=== PATIENT | male | born 1990 | race Caucasian/White ===

== ENCOUNTER 2017-12-17 03:53 | Observation (INO) | payer SELFPAY ==
--- NOTE | 2017-12-17 04:00 | EDM.PDOC ---
ED HPI GENERAL MEDICAL PROBLEM - General Stated Complaint: OVERDOSE Time Seen by Provider: 12/17/17 03:59 Source of Information: Reports: Patient - History of Present Illness INITIAL COMMENTS - FREE TEXT/NARRATIVE: HISTORY AND PHYSICAL: History of present illness: [Patient presents via EMS He has altered mental status presumed to have overdosed on Ambien, he takes 5 mg of Ambien daily for 7 years he filled his prescription on the 8 tabs are used from the bottle, unable to obtain history from patient [place] Coma Scale is 9-10, presumed ingestion within the last hour, EMS did provide 2 mg of Narcan with no effect, glucose was 117 on EMS check After several hours in the ER patient did sit up and we did have a conversation however he went back to sleep shortly after he did deny suicidal ideation he states he was drinking too much alcohol and took 10 mg of Ambien ] Review of systems: As per history of present illness and below otherwise all systems reviewed and negative. Past medical history: As per history of present illness and as reviewed below otherwise noncontributory. Surgical history: As per history of present illness and as reviewed below otherwise noncontributory. Social history: No reported history of drug or alcohol abuse. Family history: As per history of present illness and as reviewed below otherwise noncontributory. Physical exam: HEENT: Atraumatic, normocephalic, pupils reactive, negative for conjunctival pallor or scleral icterus, mucous membranes moist, throat clear, neck supple, nontender, trachea midline. Contusion right eye Lungs: Clear to auscultation, breath sounds equal bilaterally, chest nontender. Heart: S1S2, regular, negative for clicks, rubs, or JVD. Abdomen: Soft, nondistended, nontender. Negative for masses or hepatosplenomegaly. Negative for costovertebral tenderness. Pelvis: Stable nontender. Genitourinary: Deferred. Rectal: Deferred. Extremities: Atraumatic, negative for cords or calf pain. Neurovascular unremarkable. Neuro: Awake, alert, oriented. Cranial nerves II through XII unremarkable. Cerebellum unremarkable. Motor and sensory unremarkable throughout. Exam nonfocal. 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 - Related Data Allergies Allergy/AdvReac Type Severity Reaction Status Date / Time Unable to Assess Allergy Unverified 12/17/17 05:35 Home Meds: Home Meds . [Unable to Verify Home Med List] 12/17/17 [History] ED ROS GENERAL - Review of Systems Review Of Systems: See Below ED EXAM, GENERAL - Physical Exam Exam: See Below Course - Vital Signs Last Recorded V/S: Last Vital Signs Temp 97.5 F 12/17/17 03:53 Pulse 110 H 12/17/17 07:00 Resp 20 12/17/17 07:00 BP 144/89 H 12/17/17 07:00 Pulse Ox 97 12/17/17 07:00 - Orders/Labs/Meds Orders: Active Orders 24 hr Category Date Time Status Admission Status [Patient Status] [ADT] Stat ADT 12/17/17 07:10 Active EKG Documentation Completion [RC] STAT Care 12/17/17 03:55 Active Insert Truong Catheter [Insert Urinary Catheter] [OM.PC] Care 12/17/17 04:15 Ordered Q24H Urinary Catheter Assessment [RC] ASDIRECTED Care 12/17/17 04:12 Active Chest 1V Frontal [CR] Stat Exams 12/17/17 03:55 Taken Head wo Cont [CT] Stat Exams 12/17/17 03:55 Taken Max Facial Sinus wo Cont [CT] Stat Exams 12/17/17 04:00 Taken ACETAMINOPHEN [CHEM] Stat Lab 12/17/17 03:58 Results COMPREHENSIVE METABOLIC PN,CMP [CHEM] Stat Lab 12/17/17 03:58 Results DRUG SCREEN, URINE [URCHEM] Stat Lab 12/17/17 04:00 Ordered ETHANOL BLOOD MEDICAL [CHEM] Stat Lab 12/17/17 03:58 Results SALICYLATE [CHEM] Stat Lab 12/17/17 03:58 Results TROPONIN I [CHEM] Stat Lab 12/17/17 03:58 Results TSH [CHEM] Stat Lab 12/17/17 03:58 Results UA W/MICROSCOPIC [URIN] Stat Lab 12/17/17 04:00 Ordered Sodium Chloride 0.9% [Normal Saline] 1,000 ml Med 12/17/17 04:15 Active IV STAT Medication Orders Sodium Chloride (Normal Saline) 1,000 mls @ 125 mls/hr IV STAT FARIBA Last Admin: 12/17/17 04:13 Dose: 125 mls/hr Labs: Laboratory Tests 12/17/17 12/17/17 12/17/17 Range/Units 03:58 03:58 04:00 WBC 7.61 (4.0-11.0) K/uL RBC 4.67 (4.50-5.90) M/uL Hgb 15.2 (13.0-17.0) g/dL Hct 43.0 (38.0-50.0) % MCV 92.1 (80.0-98.0) fL MCH 32.5 H (27.0-32.0) pg MCHC 35.3 (31.0-37.0) g/dL RDW Std Deviation 42.2 (28.0-62.0) fl RDW Coeff of Jose L 13 (11.0-15.0) % Plt Count 268 (150-400) K/uL MPV 9.50 (7.40-12.00) fL Neut % (Auto) 51.1 (48.0-80.0) % Lymph % (Auto) 40.9 H (16.0-40.0) % [place] % (Auto) 7.4 (0.0-15.0) % Eos % (Auto) 0.5 (0.0-7.0) % Baso % (Auto) 0.1 (0.0-1.5) % Neut # (Auto) 3.9 (1.4-5.7) K/uL Lymph # (Auto) 3.1 H (0.6-2.4) K/uL [place] # (Auto) 0.6 (0.0-0.8) K/uL Eos # (Auto) 0.0 (0.0-0.7) K/uL Baso # (Auto) 0.0 (0.0-0.1) K/uL Nucleated RBC % 0.0 /100WBC Nucleated RBCs # 0 K/uL Sodium 143 (136-148) mmol/L Potassium 3.5 (3.5-5.1) mmol/L Chloride 107 (98-107) mmol/L Urine Color YELLOW Urine Appearance CLEAR Urine pH 6.0 (5.0-8.0) Ur Specific [place] 1.025 (1.001-1.035) Urine Protein NEGATIVE (NEGATIVE) mg/dL Urine Glucose (UA) NEGATIVE (NEGATIVE) mg/dL Urine Ketones NEGATIVE (NEGATIVE) mg/dL Urine Occult Blood NEGATIVE (NEGATIVE) Urine Nitrite NEGATIVE (NEGATIVE) Urine Bilirubin NEGATIVE (NEGATIVE) Urine Urobilinogen 0.2 (<2.0) EU/dL Ur Leukocyte Esterase NEGATIVE (NEGATIVE) Urine RBC NONE SEEN (0-2/HPF) Urine WBC 0-3 (0-5/HPF) Ur Epithelial Cells RARE (NONE-FEW) Urine Bacteria RARE (NEGATIVE) Urine Mucus LIGHT (NONE-MOD) Salicylates 1.1 (0-20) mg/dL Urine Opiates Screen (NEGATIVE) Ur Oxycodone Screen (NEGATIVE) Urine Methadone Screen (NEGATIVE) Acetaminophen 0.0 ug/mL Ur Barbiturates Screen (NEGATIVE) Ur Phencyclidine Scrn (NEGATIVE) Ur Amphetamine Screen (NEGATIVE) U Methamphetamines Scrn (NEGATIVE) U Benzodiazepines Scrn (NEGATIVE) U Cocaine Metab Screen (NEGATIVE) U Marijuana (THC) Screen (NEGATIVE) 12/17/17 Range/Units 04:00 WBC (4.0-11.0) K/uL RBC (4.50-5.90) M/uL Hgb (13.0-17.0) g/dL Hct (38.0-50.0) % MCV (80.0-98.0) fL MCH (27.0-32.0) pg MCHC (31.0-37.0) g/dL RDW Std Deviation (28.0-62.0) fl RDW Coeff of Jose L (11.0-15.0) % Plt Count (150-400) K/uL MPV (7.40-12.00) fL Neut % (Auto) (48.0-80.0) % Lymph % (Auto) (16.0-40.0) % [place] % (Auto) (0.0-15.0) % Eos % (Auto) (0.0-7.0) % Baso % (Auto) (0.0-1.5) % Neut # (Auto) (1.4-5.7) K/uL Lymph # (Auto) (0.6-2.4) K/uL [place] # (Auto) (0.0-0.8) K/uL Eos # (Auto) (0.0-0.7) K/uL Baso # (Auto) (0.0-0.1) K/uL Nucleated RBC % /100WBC Nucleated RBCs # K/uL Sodium (136-148) mmol/L Potassium (3.5-5.1) mmol/L Chloride (98-107) mmol/L Urine Color Urine Appearance Urine pH (5.0-8.0) Ur Specific [place] (1.001-1.035) Urine Protein (NEGATIVE) mg/dL Urine Glucose (UA) (NEGATIVE) mg/dL Urine Ketones (NEGATIVE) mg/dL Urine Occult Blood (NEGATIVE) Urine Nitrite (NEGATIVE) Urine Bilirubin (NEGATIVE) Urine Urobilinogen (<2.0) EU/dL Ur Leukocyte Esterase (NEGATIVE) Urine RBC (0-2/HPF) Urine WBC (0-5/HPF) Ur Epithelial Cells (NONE-FEW) Urine Bacteria (NEGATIVE) Urine Mucus (NONE-MOD) Salicylates (0-20) mg/dL Urine Opiates Screen NEGATIVE (NEGATIVE) Ur Oxycodone Screen NEGATIVE (NEGATIVE) Urine Methadone Screen NEGATIVE (NEGATIVE) Acetaminophen ug/mL Ur Barbiturates Screen NEGATIVE (NEGATIVE) Ur Phencyclidine Scrn NEGATIVE (NEGATIVE) Ur Amphetamine Screen NEGATIVE (NEGATIVE) U Methamphetamines Scrn NEGATIVE (NEGATIVE) U Benzodiazepines Scrn NEGATIVE (NEGATIVE) U Cocaine Metab Screen NEGATIVE (NEGATIVE) U Marijuana (THC) Screen NEGATIVE (NEGATIVE) Meds: Medications Generic Name Dose Route Start Last Admin Trade Name Freq PRN Reason Stop Dose Admin Sodium Chloride 1,000 mls @ 125 mls/hr 12/17/17 04:15 12/17/17 04:13 Normal Saline IV 125 mls/hr STAT FARIBA Administration Departure - Departure Time of Disposition: 07:17 Disposition: Refer to Observation Condition: Fair Clinical Impression: Drug abuse - Discharge Information - My Orders Last 24 Hours: My Active Orders 12/17/17 03:55 EKG Documentation Completion [RC] STAT Chest 1V Frontal [CR] Stat Head wo Cont [CT] Stat 12/17/17 03:58 ACETAMINOPHEN [CHEM] Stat COMPREHENSIVE METABOLIC PN,CMP [CHEM] Stat ETHANOL BLOOD MEDICAL [CHEM] Stat SALICYLATE [CHEM] Stat TROPONIN I [CHEM] Stat TSH [CHEM] Stat 12/17/17 04:00 Max Facial Sinus wo Cont [CT] Stat DRUG SCREEN, URINE [URCHEM] Stat UA W/MICROSCOPIC [URIN] Stat 12/17/17 04:12 Urinary Catheter Assessment [RC] ASDIRECTED 12/17/17 04:15 Insert Truong Catheter [Insert Urinary Catheter] [OM.PC] Q24H Sodium Chloride 0.9% [Normal Saline] 1,000 ml IV STAT 12/17/17 07:10 Admission Status [Patient Status] [ADT] Stat - Assessment/Plan Last 24 Hours: My Active Orders 12/17/17 03:55 EKG Documentation Completion [RC] STAT Chest 1V Frontal [CR] Stat Head wo Cont [CT] Stat 12/17/17 03:58 ACETAMINOPHEN [CHEM] Stat COMPREHENSIVE METABOLIC PN,CMP [CHEM] Stat ETHANOL BLOOD MEDICAL [CHEM] Stat SALICYLATE [CHEM] Stat TROPONIN I [CHEM] Stat TSH [CHEM] Stat 12/17/17 04:00 Max Facial Sinus wo Cont [CT] Stat DRUG SCREEN, URINE [URCHEM] Stat UA W/MICROSCOPIC [URIN] Stat 12/17/17 04:12 Urinary Catheter Assessment [RC] ASDIRECTED 12/17/17 04:15 Insert Truong Catheter [Insert Urinary Catheter] [OM.PC] Q24H Sodium Chloride 0.9% [Normal Saline] 1,000 ml IV STAT 12/17/17 07:10 Admission Status [Patient Status] [ADT] Stat
[2017-12-17] MEDS ORDERED: Sodium Chloride 0.9% 1,000 ML IV SCH (04:15)
[2017-12-17 04:37] LABS: CHLORIDE,CL 107 mmol/L (98-107); SODIUM,NA 143 mmol/L (136-148)
[2017-12-17] MEDS ORDERED: Sodium Chloride 0.9% 10 ML Syringe FLUSH PRN (09:11)
[2017-12-17] MEDS ORDERED: Morphine 2 MG/ML Syringe IVPUSH PRN (09:11)
[2017-12-17] MEDS ORDERED: Acetaminophen 325 MG Tab PO PRN (09:11)
[2017-12-17] MEDS ORDERED: Sodium Chloride 0.9% 2.5 ML Syringe FLUSH PRN (09:11)
[2017-12-17] MEDS ORDERED: Lactated Ringers 1,000 ML IV SCH (09:15)
[2017-12-17] MEDS ORDERED: MVI, Adult with Vitamin K 10 ML, Thiamine 100 MG, Folic Acid 1 MG in Sodium Chloride 0.... IV ONE ×4 (09:16)
--- NOTE | 2017-12-17 10:18 | CT ---
EXAM DATE: 12/17/17 PATIENT'S AGE: 27 Patient: JENNIFER GOMEZ Facility: [place], [place] Site . Site : 1990 Study: CT Facial [id number]/16/2018 5:05:39 AM Ordering Physician: Doctor Arndt Final Report: INDICATION: Unresponsive. Injury. TECHNIQUE: CT maxillofacial without contrast. COMPARISON: None available FINDINGS: There is no evidence of an acute facial bone fracture. There is no significant facial soft tissue swelling. The orbital contents appear grossly symmetrical. The paranasal sinuses are well aerated without air-fluid levels. IMPRESSION: No evidence of an acute facial bone fracture. Dictated by Dutch Jenkins MD @ 12/17/2017 5:31:53 AM Please note that all CT scans at this facility use dose modulation, iterative reconstruction, and/or weight-based dosing when appropriate to reduce radiation dose to as low as reasonably achievable. Dictated by: Dutch Jenkins MD @ 12/17/2017 05:32:01 (Electronic Signature) Report Signed by Proxy. [facility]OSPITALEmilia
--- NOTE | 2017-12-17 10:18 | CR ---
EXAM DATE: 12/17/17 PATIENT'S AGE: 27 Patient: JENNIFER GOMEZ Facility: [place], [place] Site . Site : 1990 Study: XRay Chest [id number]/16/2018 5:04:40 AM Ordering Physician: Doctor Arndt Final Report: Indication: Overdose Technique: Chest 1 view Comparison: None Findings/Impression: Cardiovascular and mediastinum: Mild cardiomegaly which could be related to the portable technique. Lungs and pleural space: An expiratory study. No gross consolidation or pleural effusions. Bones and soft tissues: No significant findings. Dictated by Dutch Jenkins MD @ 12/17/2017 5:22:41 AM Dictated by: Dutch Jenkins MD @ 12/17/2017 05:22:44 (Electronic Signature) Report Signed by Proxy. MTDEmilia
--- NOTE | 2017-12-17 10:19 | CT ---
EXAM DATE: 12/17/17 PATIENT'S AGE: 27 Patient: JENNIFER GOMEZ Facility: [place], [place] Site . Site : 1990 Study: CT Head [id number]/16/2018 5:10:33 AM Ordering Physician: Doctor Arndt Final Report: INDICATION: Unresponsive TECHNIQUE: CT head without contrast. COMPARISON: None available FINDINGS: The ventricles and sulci are within normal limits for the patient`s age. There is no mass effect or midline shift. There is no loss of johnson-white differentiation. There is no evidence of an acute intracranial hemorrhage. No acute calvarial fracture is seen. The visualized paranasal sinuses and mastoid air cells are clear. Visualized orbits are within normal limits. IMPRESSION: No evidence of an acute intracranial hemorrhage, mass effect or loss of johnson- white differentiation. Dictated by Dutch Jenkins MD @ 12/17/2017 5:26:36 AM Please note that all CT scans at this facility use dose modulation, iterative reconstruction, and/or weight-based dosing when appropriate to reduce radiation dose to as low as reasonably achievable. Dictated by: Dutch Jenkins MD @ 12/17/2017 05:26:42 (Electronic Signature) Report Signed by Proxy. [facility] NETWORKEmilia
--- NOTE | 2017-12-17 22:23 | PCM.HP ---
H&P History of Present Illness - General Date of Service: 12/17/17 Admit Problem/Dx: Admission Diagnosis/Problem Admission Diagnosis/Problem Drug overdose Source of Information: Patient History Limitations: Reports: No Limitations - History of Present Illness Initial Comments - Free Text/Narative: Patient 27 y old man presented to Er because he became unresponsive when he went to bathroom and his roommate called EMS.Patient says he had a bottle of Ambien 30 tablets since 2013 and he takes one tablet of Ambien prn , 5 mg when he cant sleep.Last night while with his friend , he drank alcohol and later took few tablets of Ambien to go to sleep. Patient denies any suicidal ideation and he does not remember when he took and how many tablets he took as he was too drunk. After he took the Ambien he wanted to walk to bathroom but fell back on the bed. His friend tried to help him go to bathroom and he fell forward and hit his face , corner of the left eye on a table. Once he arrived to bathroom and sit on the toilet he became unresponsive and EMS was called. When patient came to Er he was responding only to sternal rub by opening his eye. The bottle Ambien was seen by me and there were a Onset of Symptoms: Reports: Today Location: Reports: Head - Related Data Allergies/Adverse Reactions: Allergies Allergy/AdvReac Type Severity Reaction Status Date / Time No Known Drug Allergies Allergy Other Verified 12/17/17 09:27 Home Medications: Home Meds . [Unable to Verify Home Med List] 12/17/17 [History] Social & Family History - Tobacco Use Smoking Status *Q: Current Some Day Smoker Years of Tobacco use: 10 Packs/Tins Daily: 0.5 - Caffeine Use Caffeine Use: Reports: Soda - Alcohol Use Date of Last Drink: 12/16/17 - Recreational Drug Use Recreational Drug Use: No H&P Review of Systems - Review of Systems: Review Of Systems: Unable To Obtain Exam - Exam Exam: See Below - Vital Signs Vital Signs: Last Vital Signs Temp 97.4 F 12/17/17 13:00 Pulse 110 H 12/17/17 07:00 Resp 16 12/17/17 16:00 BP 138/87 12/17/17 16:00 Pulse Ox 97 12/17/17 16:00 Weight: 253 lb 8.505 oz - Exam General: Obtunded HEENT: Conjunctiva Clear, Other (mild bruise in the corner of the left eye) Neck: Trachea Midline. No: Thyromegaly Lungs: Clear to Auscultation Cardiovascular: Regular Rate, Regular Rhythm, Normal S1, Normal S2 GI/Abdominal Exam: Normal Bowel Sounds, Soft, No Distention, No Mass (Male) Exam: Other (Truong on) Extremities: Normal Inspection - Patient Data Lab Results Last 24 hrs: Laboratory Results - last 24 hr 12/17/17 12/17/17 12/17/17 Range/Units 03:58 03:58 04:00 WBC 7.61 (4.0-11.0) K/uL RBC 4.67 (4.50-5.90) M/uL Hgb 15.2 (13.0-17.0) g/dL Hct 43.0 (38.0-50.0) % MCV 92.1 (80.0-98.0) fL MCH 32.5 H (27.0-32.0) pg MCHC 35.3 (31.0-37.0) g/dL RDW Std Deviation 42.2 (28.0-62.0) fl RDW Coeff of Jose L 13 (11.0-15.0) % Plt Count 268 (150-400) K/uL MPV 9.50 (7.40-12.00) fL Neut % (Auto) 51.1 (48.0-80.0) % Lymph % (Auto) 40.9 H (16.0-40.0) % [place] % (Auto) 7.4 (0.0-15.0) % Eos % (Auto) 0.5 (0.0-7.0) % Baso % (Auto) 0.1 (0.0-1.5) % Neut # (Auto) 3.9 (1.4-5.7) K/uL Lymph # (Auto) 3.1 H (0.6-2.4) K/uL [place] # (Auto) 0.6 (0.0-0.8) K/uL Eos # (Auto) 0.0 (0.0-0.7) K/uL Baso # (Auto) 0.0 (0.0-0.1) K/uL Nucleated RBC % 0.0 /100WBC Nucleated RBCs # 0 K/uL Sodium 143 (136-148) mmol/L Potassium 3.5 (3.5-5.1) mmol/L Chloride 107 (98-107) mmol/L Carbon Dioxide 21.2 (21.0-32.0) mmol/L BUN 9 (7.0-18.0) mg/dL Creatinine 1.2 (0.8-1.3) mg/dL Est Cr Clr Drug Dosing 94.63 mL/min Estimated GFR (MDRD) > 60.0 ml/min Glucose 102 (74-106) mg/dL Calcium 8.7 (8.5-10.1) mg/dL Total Bilirubin 0.2 (0.2-1.0) mg/dL AST 21 (15-37) IU/L ALT 56 (14-63) IU/L Alkaline Phosphatase 61 (46-116) U/L Troponin I < 0.050 (0.000-0.056) ng/mL Total Protein 7.3 (6.4-8.2) g/dL Albumin 4.0 (3.4-5.0) g/dL Globulin 3.3 (2.0-3.5) g/dL Albumin/Globulin Ratio 1.2 L (1.3-2.8) TSH 3rd Generation 2.20 (0.36-3.74) uIU/mL Urine Color YELLOW Urine Appearance CLEAR Urine pH 6.0 (5.0-8.0) Ur Specific [place] 1.025 (1.001-1.035) Urine Protein NEGATIVE (NEGATIVE) mg/dL Urine Glucose (UA) NEGATIVE (NEGATIVE) mg/dL Urine Ketones NEGATIVE (NEGATIVE) mg/dL Urine Occult Blood NEGATIVE (NEGATIVE) Urine Nitrite NEGATIVE (NEGATIVE) Urine Bilirubin NEGATIVE (NEGATIVE) Urine Urobilinogen 0.2 (<2.0) EU/dL Ur Leukocyte Esterase NEGATIVE (NEGATIVE) Urine RBC NONE SEEN (0-2/HPF) Urine WBC 0-3 (0-5/HPF) Ur Epithelial Cells RARE (NONE-FEW) Urine Bacteria RARE (NEGATIVE) Urine Mucus LIGHT (NONE-MOD) Salicylates 1.1 (0-20) mg/dL Urine Opiates Screen (NEGATIVE) Ur Oxycodone Screen (NEGATIVE) Urine Methadone Screen (NEGATIVE) Acetaminophen 0.0 ug/mL Ur Barbiturates Screen (NEGATIVE) Ur Phencyclidine Scrn (NEGATIVE) Ur Amphetamine Screen (NEGATIVE) U Methamphetamines Scrn (NEGATIVE) U Benzodiazepines Scrn (NEGATIVE) U Cocaine Metab Screen (NEGATIVE) U Marijuana (THC) Screen (NEGATIVE) Ethyl Alcohol 74 mg/dL 12/17/17 Range/Units 04:00 WBC (4.0-11.0) K/uL RBC (4.50-5.90) M/uL Hgb (13.0-17.0) g/dL Hct (38.0-50.0) % MCV (80.0-98.0) fL MCH (27.0-32.0) pg MCHC (31.0-37.0) g/dL RDW Std Deviation (28.0-62.0) fl RDW Coeff of Jose L (11.0-15.0) % Plt Count (150-400) K/uL MPV (7.40-12.00) fL Neut % (Auto) (48.0-80.0) % Lymph % (Auto) (16.0-40.0) % [place] % (Auto) (0.0-15.0) % Eos % (Auto) (0.0-7.0) % Baso % (Auto) (0.0-1.5) % Neut # (Auto) (1.4-5.7) K/uL Lymph # (Auto) (0.6-2.4) K/uL [place] # (Auto) (0.0-0.8) K/uL Eos # (Auto) (0.0-0.7) K/uL Baso # (Auto) (0.0-0.1) K/uL Nucleated RBC % /100WBC Nucleated RBCs # K/uL Sodium (136-148) mmol/L Potassium (3.5-5.1) mmol/L Chloride (98-107) mmol/L Carbon Dioxide (21.0-32.0) mmol/L BUN (7.0-18.0) mg/dL Creatinine (0.8-1.3) mg/dL Est Cr Clr Drug Dosing mL/min Estimated GFR (MDRD) ml/min Glucose (74-106) mg/dL Calcium (8.5-10.1) mg/dL Total Bilirubin (0.2-1.0) mg/dL AST (15-37) IU/L ALT (14-63) IU/L Alkaline Phosphatase (46-116) U/L Troponin I (0.000-0.056) ng/mL Total Protein (6.4-8.2) g/dL Albumin (3.4-5.0) g/dL Globulin (2.0-3.5) g/dL Albumin/Globulin Ratio (1.3-2.8) TSH 3rd Generation (0.36-3.74) uIU/mL Urine Color Urine Appearance Urine pH (5.0-8.0) Ur Specific [place] (1.001-1.035) Urine Protein (NEGATIVE) mg/dL Urine Glucose (UA) (NEGATIVE) mg/dL Urine Ketones (NEGATIVE) mg/dL Urine Occult Blood (NEGATIVE) Urine Nitrite (NEGATIVE) Urine Bilirubin (NEGATIVE) Urine Urobilinogen (<2.0) EU/dL Ur Leukocyte Esterase (NEGATIVE) Urine RBC (0-2/HPF) Urine WBC (0-5/HPF) Ur Epithelial Cells (NONE-FEW) Urine Bacteria (NEGATIVE) Urine Mucus (NONE-MOD) Salicylates (0-20) mg/dL Urine Opiates Screen NEGATIVE (NEGATIVE) Ur Oxycodone Screen NEGATIVE (NEGATIVE) Urine Methadone Screen NEGATIVE (NEGATIVE) Acetaminophen ug/mL Ur Barbiturates Screen NEGATIVE (NEGATIVE) Ur Phencyclidine Scrn NEGATIVE (NEGATIVE) Ur Amphetamine Screen NEGATIVE (NEGATIVE) U Methamphetamines Scrn NEGATIVE (NEGATIVE) U Benzodiazepines Scrn NEGATIVE (NEGATIVE) U Cocaine Metab Screen NEGATIVE (NEGATIVE) U Marijuana (THC) Screen NEGATIVE (NEGATIVE) Ethyl Alcohol mg/dL Result Diagrams: 12/17/17 03:58 12/17/17 03:58 - Problem List (1) Accidental drug overdose SNOMED Code(s): 14234863 ICD Code: T50.901A - POISONING BY UNSP DRUG/MEDS/BIOL SUBST, ACCIDENTAL, INIT Status: Acute (2) Alcohol intoxication SNOMED Code(s): 13602731 ICD Code: F10.929 - ALCOHOL USE, UNSPECIFIED WITH INTOXICATION, UNSPECIFIED Status: Acute Problem List Initiated/Reviewed/Updated: Yes Orders Last 24hrs: Active Orders 24 hr Category Date Time Status Admission Status [Patient Status] [ADT] Stat ADT 12/17/17 07:10 Active Patient Status [ADT] Routine ADT 12/17/17 09:11 Active Insert Truong Catheter [Insert Urinary Catheter] [OM.PC] Care 12/17/17 04:15 Ordered Q24H Oxygen Therapy [RC] PRN Care 12/17/17 09:11 Active Pulse Oximetry [RC] PRN Care 12/17/17 09:13 Active Ready for Discharge [RC] PER UNIT ROUTINE Care 12/17/17 15:59 Active Up ad Tatiana [RC] ASDIRECTED Care 12/17/17 09:11 Active Urinary Catheter Assessment [RC] ASDIRECTED Care 12/17/17 04:12 Active Vital Signs [RC] Q1H Care 12/17/17 09:11 Active DRUG SCREEN, URINE [URCHEM] Stat Lab 12/17/17 04:00 Ordered UA W/MICROSCOPIC [URIN] Stat Lab 12/17/17 04:00 Ordered Peripheral IV Insertion Adult [OM.PC] Routine Oth 12/17/17 09:11 Ordered Sequential Compression Device [OM.PC] Per Unit Routine Oth 12/17/17 09:14 Ordered Resuscitation Status Routine Resus Stat 12/17/17 09:[address] head negative Ct facial negative for fracture CXr negative a/p drug overdose with AMS alcohol intoxication plan admit patient to ICU observation Iv fluids will monitor in telemetry until patient wakes up Discharge summary Patient woke up . He was fully awake , his friend was in the room , he denied suicidal ideation , and provided full history. He was discharged home in a stable condition and advised to not take Ambien if he drinks alcohol .
== END 2017-12-17 16:22 | disposition home or self-care (01) ==
LOC: MW.ED 03:53 → MW.ICU 07:10
PROVIDERS: ADMIT Internal Medicine; ATTEND Internal Medicine
DX: T42.6X1A Poisoning by other antiepileptic and sedative-hypnotic drugs, accidental (unintentional), initial encounter (principal); F10.929 Alcohol use, unspecified with intoxication, unspecified; F17.210 Nicotine dependence, cigarettes, uncomplicated; Y90.0 Blood alcohol level of less than 20 mg/100 ml
CPT/HCPCS: 36415; 70450; 70486; 71045; 80053; 80305; 81001; 84443; 84484; 85025; 93005; 96361; 96365; 99285; G0378; G0480; J3411; J7040; J7120; 96360

== ENCOUNTER 2017-12-24 03:13 | Emergency (ER) | payer SELFPAY ==
[~2017-12-24 03:13] MED LIST: Rocuronium 50 MG/5 ML Vial IVPUSH ONE; Sodium Chloride 0.9% 1,000 ML IV ONE; cefTRIAXone 2 GM in Premix Bag 1 BAG IV ONE
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
[2017-12-24] MEDS ORDERED: Phenytoin 250 MG/5 ML SDV ONE (03:30)
[2017-12-24] MEDS ORDERED: Succinylcholine 200 MG/10 ML MDV ONE (03:30)
[2017-12-24] MEDS ORDERED: Rocuronium 50 MG/5 ML Vial ONE (03:30)
[2017-12-24] MEDS ORDERED: Succinylcholine 200 MG/10 ML MDV IV SCH (06:45)
--- NOTE | 2017-12-24 09:02 | CR ---
EXAM DATE: 12/24/17 PATIENT'S AGE: 27 Patient: JENNIFER GOMEZ Facility: [place], [place] Site . Site : 1990 Study: XRay Chest [id number]/23/2018 3:31:30 AM Ordering Physician: Cheo Garcia MD Final Report: Indication: Intubation Technique: Chest 1 view Comparison: None Findings/Impression: Endotracheal tube tip terminates 5.0 cm above the level of the luz. Normal cardiomediastinal silhouette. Clear lungs and pleural spaces. No ballistic fragment identified. Osseous structures intact. Lucency in the left upper quadrant likely reflects moderate air-filled distention of the stomach. Dictated by Galina Kirk MD @ Dec 24 2017 3:49AM (Electronic Signature) Report Signed by Proxy. [email or web address]
== END 2017-12-24 04:00 ==
LOC: MW.ED 03:13
DX: S01.80XA Unspecified open wound of other part of head, initial encounter (principal)
CPT/HCPCS: 36415; 71045; 86803; 87340; 87389; 96361; 96365; 96374; 96375; 99291; J0330; J0696; J1165; J7040; J7050